=== PATIENT | male | born 1985 | race Caucasian/White ===

== ENCOUNTER 2020-08-18 17:38 | Emergency (ER) | payer OTHER ==
[2020-08-18 18:07] VITALS: BP 128/79; PULSE 92; TEMP 99.4; BMI 32.5
[2020-08-18] MEDS ORDERED: KETOROLAC TROMETHAMINE 30 MG/1 ML VIAL IM ONE (18:50)
[2020-08-18] MEDS ORDERED: METHOCARBAMOL 500 MG TABLET ONE (18:50)
[2020-08-18] MEDS ORDERED: METHOCARBAMOL 500 MG TABLET PO ONE (18:50)
[2020-08-18] MEDS ORDERED: KETOROLAC TROMETHAMINE 30 MG/1 ML VIAL ONE (18:51)
--- NOTE | 2020-08-18 18:52 | PDOC ---
History of Present Illness - General Chief Complaint: Pain Stated Complaint: L SHOULDER PAIN Time Seen by Provider: 08/18/20 18:16 History Source: Patient Exam Limitations: Clinical Condition - History of Present Illness Initial Comments: 08/18/20 19:04 Patient with no significant past medical history present with complaint of left shoulder pain status post sleeping on the left shoulder 2 days ago and waking up with shoulder pain. Patient reports shoulder pain is been progressing getting worse especially with left arm elevation. Denies any trauma or injury to left shoulder or arm. Patient report taking Aleve with minimal improvement. Denies previous shoulder surgery or injury Occurred: reports: other (2 days) Past History - Medical History Allergies/Adverse Reactions: Allergies Allergy/AdvReac Type Severity Reaction Status Date / Time No Known Allergies Allergy Verified 08/18/20 18:03 Home Medications: Ambulatory Orders levoFLOXacin [Levaquin -] 500 mg PO DAILY #14 tablet 09/16/15 Methocarbamol [Robaxin -] 500 mg PO BID #14 tablet 08/18/20 Naproxen 500 mg PO BID PRN #20 tablet 08/18/20 COPD: No - Immunization History Immunization Up to Date: Yes - Psycho-Social/Smoking History Smoking History: Current every day smoker Have you smoked in the past 12 months: Yes Number of Cigarettes Smoked Daily: 0 Cigars Per Day: 1 Information on smoking cessation initiated: Yes - Substance Abuse Hx (Audit-C & DAST Scrn) How often the patient has a drink containing alcohol: Never Score: In Men: 4 or > Positive; In Women: 3 or > Positive: 0 Screen Result (Pos requires Nsg. Audit-10AR): Negative In the last yr the pt used illegal drug/Rx for NonMed reason: Yes Score: Yes response is considered Positive: 1 Screen Result (Positive result requires Nsg. DAST-10): Positive Review of Systems - Review of Systems Able to Perform ROS?: Yes Is the patient limited Romansh proficient: No Constitutional: No: Weakness HEENTM: No: Symptoms Reported Respiratory: No: Symptoms reported Cardiac (ROS): No: Symptoms Reported Musculoskeletal: Yes: Symptoms Reported, See HPI, Joint Pain (left shoulder pain), Muscle Pain (left shoulder pain) Integumentary: No: Symptoms Reported Neurological: No: Symptoms reported, Paresthesia, Tingling All Other Systems: Reviewed and Negative *Physical Exam - Vital Signs Last Vital Signs Temp Pulse Resp BP Pulse Ox 99.4 F 92 H 18 128/79 100 08/18/20 18:03 08/18/20 18:03 08/18/20 18:03 08/18/20 18:03 08/18/20 18:03 - Physical Exam 08/18/20 19:06 GENERAL: Well developed, well nourished. Awake and alert in moderate acute distress. PULMONARY: No evidence of respiratory distress. MUSCULOSKELETAL : moderate tenderness over AC joint and top of left shoulder with no visible deformity or swelling. Negative left arm drop test. Normal strength to left upper extremity. Few range of motion of left shoulder. SKIN: Warm and dry. Normal capillary refill. No erythema, bruising or ecchymosis to left shoulder or upper extremity NEUROLOGICAL: Alert, awake, appropriate. No motor deficits in the lower extremities. Gait is normal without ataxia. PSYCHIATRIC: Cooperative. Good eye contact. Appropriate mood and affect. General Appearance: Yes: Nourished, Appropriately Dressed, Apparent Distress, Moderate Distress Medical Decision Making - Medical Decision Making 08/18/20 19:05 Patient with no significant past medical history present with complaint of left shoulder pain status post sleeping on the left shoulder 2 days ago and waking up with shoulder pain. Patient reports shoulder pain is been progressing getting worse especially with left arm elevation. Denies any trauma or injury to left shoulder or arm. Patient report taking Aleve with minimal improvement. Denies previous shoulder surgery or injury Exam significant for moderate tenderness over AC joint and top of left shoulder with no visible deformity or swelling. Negative left arm drop test. Normal strength to left upper extremity. Few range of motion of left shoulder. X-ray of left shoulder shows no acute abnormality. Patient pain likely shoulder strain. Toradol 30 mg IM and Robaxin thousand milligrams p.o. ordered for pain and spasm. Patient stable for discharge on naproxen as needed for pain Robaxin for spasm with advised to do warm compresses with orthopedics follow-up Discharge - Discharge Information Problems reviewed: Yes Clinical Impression/Diagnosis: Left shoulder strain Qualifiers: Encounter type: initial encounter Qualified Code(s): S46.912A - Strain of unspecified muscle, fascia and tendon at shoulder and upper arm level, left arm, initial encounter Condition: Stable Disposition: HOME - Admission No - Additional Discharge Information Prescriptions: Naproxen 500 mg PO BID PRN #20 tablet PRN Reason: shoulder pain Methocarbamol [Robaxin -] 500 mg PO BID #14 tablet - Follow up/Referral Referrals: Marcial Thorne DO [Staff Physician] - - Patient Discharge Instructions Patient Printed Discharge Instructions: DI for Shoulder Sprain Additional Instructions: X-ray of your left shoulder is normal and shows no bony abnormality. Your pain is likely from shoulder sprain. Continue doing hot compresses as needed for pain and take prescribed medication as prescribed for pain and spasm. Follow-up referred to orthopedics if no improvement in 3 days - Post Discharge Activity
== END 2020-08-18 18:56 | disposition home or self-care (01) ==
LOC: JERFT 17:38
PROC: 3E0233Z Introduction of Anti-inflammatory into Muscle, Percutaneous Approach (ICD-10-PCS; principal; 2020-08-18)
DX: S46.912A Strain of unspecified muscle, fascia and tendon at shoulder and upper arm level, left arm, initial encounter (principal)
CPT/HCPCS: 73030-TC-LT-FY; 99284-25